=== PATIENT | female | born 1975 | race Caucasian/White ===

== ENCOUNTER 2025-01-03 11:34 | Emergency (ER) | payer OTHER, MEDICAID, SELFPAY ==
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
[2025-01-03 11:45] VITALS: BP 127/77; PULSE 74; RESP 18; TEMP 36.5; O2SAT 99
--- NOTE | 2025-01-03 12:34 | ECG_ITS ---
Test Date: 2025-01-03 13:05:43 Measurements Intervals [place] Rate: 61 P: 34 W[place]: 122 QRS: 85 QRSD: 76 T: 66 QT: 378 QTc: 383 Interpretive Statements SINUS RHYTHM BASELINE ARTIFACT- I, II, AVR NORMAL ECG No previous ECG available for comparison Electronically Signed On 01-03-2025 13:18:28 CDT by Jon Hyatt D.O.
[2025-01-03 13:01] LABS: Hematocrit 38.7 % (37.0-47.0); Hemoglobin 13.3 g/dL (12.0-15.0); Immature Granulocyte Percent A 0.4 % (0-0.5); Lymphocytes Absolute Auto 2.00 K/mm3 (0.9-3.2); Mean Corpuscular HGB Conc 34.4 g/dl (32-36); Mean Corpuscular Hemoglobin 33.5 pg (26-34); Mean Corpuscular Volume 97.5 fl (80-100); Nucleated Red Blood Cells Absolute Auto 0.000 K/mm3 (0.0-0.012); Nucleated Red Blood Cells Perc 0.0 % (0.0-0.2); Platelet Count Result 279 k/mm3 (150-375); Red Blood Count 3.97 M/mm3 (4.2-5.4); White Blood Count 13.6 K/mm3 (4.5-10.0)
[2025-01-03 13:21] LABS: Alanine Aminotransferase 15 U/L (6-35); Albumin Level 4.1 g/dL (3.5-5.1); Alkaline Phosphatase 52 U/L (38-126); Anion Gap 5 mmol/L (4-12); Aspartate Amino Transferase 22 U/L (14-36); Bilirubin,Total 0.3 mg/dL (0.2-1.3); Blood Urea Nitrogen 11 mg/dL (7-17); Calcium 9.2 mg/dL (8.4-10.2); Carbon Dioxide 21 mmol/L (22-30); Chloride 108 mmol/L (98-107); Estimated CRCL calculation 73 ml/min; Estimated Glomerular Filt Rate > 60; Glucose 85 mg/dL (65-110); Potassium 4.2 mmol/L (3.4-5.0); Sodium 134 mmol/L (137-145); Total Protein 6.8 g/dL (6.3-8.2)
[2025-01-03 13:27] LABS: Troponin I < 0.012 ng/mL (0.000-0.034)
--- NOTE | 2025-01-03 13:29 | PC.NURSE ---
patient taken to CT, no medication administered at this time as patient was previously in XR and upon return EKG was obtained.
--- OUTSIDE RECORDS SUMMARY | 2025-01-03 13:36 | XMS_ITS | Data Portability ---
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 D/w pt in detail about her conditions, recent labs & imagines and further plan of care. Will do routine labs, x-ray. Pt declined for cxr. Meds as directed. Diet and exercise explained in detail. BP diary education given and call us if any concerns. Encouraged pt to cut down and stop vaping. Cont f/u with Psych at [facility] as per schedule. HM: WWE - Long time ago. Refer to PLASTERER TENDER. Mammo - 05/20/22, normal. Colonoscopy - Pt declined. Cologuard ordered. Flu - Pt declined. Tdap, Pneumo, Shingrix - At pharmacy/HD. F/u in 2 weeks. Annual labs in 05/31. [email or web address] Not available 05/27/2022 15:40:18 06/03/2022 06/03/2022 46 yo F with - HLD, new - HTG, new - CHRONIC NECK & LOW BACK PAIN - MENOPAUSAL FLUSHING - BIPOLAR DISORDER - ANXIETY DISORDER - CHRONIC INSOMNIA - CHRONIC CONSTIPATION - VAPING - H/O OPIOID ABUSE Annual labs: 05/27/22. X-ray L-spine: 05/20/22. D/w pt in detail about her conditions, recent labs & imagines and further plan of care. Advised to start on statin; but pt declined. Meds as directed. Diet and exercise explained in detail. BP diary education given and call us if any concerns. Encouraged pt to cut down and stop vaping. Cont f/u with Psych at [facility] as per schedule. HM: WWE - Long time ago. Refer to PLASTERER TENDER. Mammo - 05/20/22, normal. Colonoscopy - Pt declined. Cologuard ordered. Flu - Pt declined. Tdap, Pneumo, Shingrix - At pharmacy/HD. F/u in 3 months. X-ray neck before next visit. Lipids in 08/30. Annual labs in 05/31. [email or web address] Not available 06/03/2022 17:27:55 01/28/2023 01/28/2023 D/w pt about her findings and further plan of care. Meds as directed. OTC symptomatic Rx explained in detail. Very good liquid intake explained. Educated about alarming symptoms to monitor at home and call us back Or get checked in ED if any concerns. F/u as directed. [email or web address] Not available 01/28/2023 12:55:20 05/27/2023 05/27/2023 47 yo F with - HLD, new - HTG, new - CHRONIC NECK & LOW BACK PAIN - MENOPAUSAL FLUSHING - BIPOLAR DISORDER - ANXIETY DISORDER - CHRONIC INSOMNIA - VAPING - H/O OPIOID ABUSE Annual labs: 05/27/22. X-ray L-spine: 05/20/22. CXR: 06/13/21. X-ray T & L spine: 06/13/21. D/w pt in detail about her conditions, recent labs & imagines and further plan of care. Will do x-ray c-spine again. Meds as directed. Diet and exercise explained in detail. BP diary education given and call us if any concerns. Encouraged pt to cut down and stop vaping. Cont f/u with Psych at [facility] as per schedule. HM: WWE - Long time ago. Refer to PLASTERER TENDER. Mammo - 05/20/22, normal. Ordered. Colonoscopy - Pt declined. Cologuard ordered. Flu - Pt declined. Tdap, Pneumo, Shingrix - At pharmacy/HD. F/u in 3-4 weeks. X-ray neck before next visit. Annual labs in 05/31. [email or web address] Not available 05/27/2023 15:37:45 Plan of Treatment Reminders Order Date Submit Date Provider Last Modified By Organization Details Last Modified Time Details Appointments None recorded. Lab lipid panel, serum 20[email or web address] [facility] (Lab), [address] [place], [address], 4 08:59:22 lipid panel, serum [address] (Lab), [address] [place], [address], 3 10:52:33 vitamin B12 + folate, serum or blood [address] (Lab), [address] [place], [address], 3 11:53:52 vitamin D, 25-hydroxy, total, serum [address] (Lab), [address] [place], [address], 3 11:54:02 magnesium, serum or plasma [email or web address] [facility] (Lab), [address] [place], [address], 3 19:31:01 noninvasive colorectal cancer DNA + occult blood screening, QL, stool 2022 023 [email or web address] [facility], [address], [address], [place], [address], 3 10:57:29 HbA1c (hemoglobin A1c), blood [email or web address] (Lab), [address] [place], [address], 3 11:54:13 CBC w/ auto diff [address] [facility] (Lab), [address] [place], [address], 3 19:15:33 CMP, serum or plasma [address] [facility] (Lab), [address] [place], [address], 3 19:30:52 lipid panel, serum [address] [facility] (Lab), [address] [place], [address], 3 19:30:57 TSH, serum, reflex free T4 [address] (Lab), [address] [place], [address], 3 11:53:19 urinalysis complete, reflex culture [address] (Lab), [address] [place], [address], 3 11:53:39 Referral None recorded. Procedures None recorded. Surgeries None recorded. Imaging MAMMO, screening, bilateral [email or web address] [address] [place] [address] ([facility]), [address] [place], [address], 4 08:52:18 XR, cervical spine, 4 or 5 view 2023 024 [email or web address] [address] [place] [address] ([facility] Scheduling), [address] [place], [address], 4 08:51:32 XR, cervical spine, 2 or 3 view 2022 023 [email or web address] [facility] ([facility] Scheduling), [address] [facility], [place], [address], 3 09:01:22 Medication Orders quetiapine 200 mg tablet 2023 024 [facility], [address] [place] [address], [address], 4 14:51:59 paroxetine 20 mg tablet 2023 024 [facility], [address] [place] [address], [address], 4 14:52:00 azithromyci n 250 mg tablet [address], [address] [place] [address], [address], 4 14:54:43 Veozah 45 mg tablet 2022 023 [facility] [address], [address] [place] [address], [address], 3 13:03:32 paroxetine 10 mg tablet [address], [address] [place] [address], [address], 4 14:54:38 quetiapine 200 mg tablet 2022 023 [facility] [address], [address] [place] [address], [address], 3 17:28:47 paroxetine 10 mg tablet [address], [address] [place] [address], [address], 14:54:38 paroxetine 10 mg tablet 2022 023 [email or web address] [facility], [address] [facility], [place], [address], 14:54:38 Patient TargetsNo targets recorded. Patient Instructions Encounter Date Encounter Id Patient Instructions Last Modified By Organization Details Last Modified Time 06/03/2022 [id number] high cholesterol : care instructions [email or web address] Not available 06/03/2022 17:15:53 05/27/2023 [id number] high cholesterol : care instructions [email or web address] Not available 05/27/2023 14:51:49 Reason for Referral None Reported. Results Created Date Observation Date Name Description Value Unit Range Abnormal Flag Note LastModifiedBy Organization Detail LastModifiedTime 05/27/19 24 05/27/2023 COLOG UARD cologuard result CANCEL LED - ORDER D not applic able Not Available [facility] [address], [place], [address], 05/27/2023 10:36:39 05/28/19 23 05/27/2022 CBC/C OMPLE TE BLD COUNT W/DIF F white blood cells 5.2 x10'3 /uL 4.2-10 .8 Not Available [facility] (Lab) [address] [place], [address], 05/27/2022 19:15:33 05/28/19 23 05/27/2022 CBC/C OMPLE TE BLD COUNT W/DIF F red blood cells 4.10 x10'6 /uL 3.80-5 .20 Not Available [facility] (Lab) [address] [place], [address], 05/27/2022 19:15:33 05/28/19 23 05/27/2022 CBC/C OMPLE TE BLD COUNT W/DIF F hemoglobin 13.0 g/dL 12.0-1 5.6 Not Available [facility] (Lab) [address] [place], [address], 05/27/2022 19:15:33 05/28/19 23 05/27/2022 CBC/C OMPLE TE BLD COUNT W/DIF F hematocrit 38.6 % 35.7-4 5.7 Not Available [facility] (Lab) [address] [place], [address], 05/27/2022 19:15:33 05/28/19 23 05/27/2022 CBC/C OMPLE TE BLD COUNT W/DIF F mean red cell volume 94.1 fL 82.0-9 9.0 Not Available [facility] (Lab) [address] [place], [address], 05/27/2022 19:15:33 05/28/19 23 05/27/2022 CBC/C OMPLE TE BLD COUNT W/DIF F mean red cell hemoglobin 31.7 pg 27.0-3 3.0 Not Available [facility] (Lab) [address] [place], [address], 05/27/2022 19:15:33 05/28/19 23 05/27/2022 CBC/C OMPLE TE BLD COUNT W/DIF F mean RBC HGB concentratio n 33.7 g/dL 31.0-3 6.0 Not Available [facility] (Lab) [address] [place], [address], 05/27/2022 19:15:33 05/28/19 23 05/27/2022 CBC/C OMPLE TE BLD COUNT W/DIF F red cell distribution width 11.5 % 11.8-1 5.5 low Not Available [facility] (Lab) [address] [place], [address], 05/27/2022 19:15:33 05/28/19 23 05/27/2022 CBC/C OMPLE TE BLD COUNT W/DIF F platelets 308 x10'3 /uL 150-40 0 Not Available [facility] (Lab) [address] [place], [address], 05/27/2022 19:15:33 05/28/19 23 05/27/2022 CBC/C OMPLE TE BLD COUNT W/DIF F mean platelet volume 8.9 fL 9.0-12 .4 low Not Available [facility] (Lab) [address] [place], [address], 05/27/2022 19:15:33 05/28/19 23 05/27/2022 CBC/C OMPLE TE BLD COUNT W/DIF F neutrophils 51.5 % 39.0-7 2.0 Not Available [facility] (Lab) [address] [place], [address], 05/27/2022 19:15:33 05/28/19 23 05/27/2022 CBC/C OMPLE TE BLD COUNT W/DIF F lymphocytes 30.8 % 16.0-4 7.0 Not Available [facility] (Lab) [address] [place], [address], 05/27/2022 19:15:33 05/28/19 23 05/27/2022 CBC/C OMPLE TE BLD COUNT W/DIF F monocytes 6.8 % 5.0-12 .0 Not Available [facility] (Lab) [address] [place], [address], 05/27/2022 19:15:33 05/28/19 23 05/27/2022 CBC/C OMPLE TE BLD COUNT W/DIF F eosinophils 10.1 % 1.0-7. 0 high Not Available [facility] (Lab) [address] [place], [address], 05/27/2022 19:15:33 05/28/19 23 05/27/2022 CBC/C OMPLE TE BLD COUNT W/DIF F basophils 0.6 % 0.0-2. 0 Not Available [facility] (Lab) [address] [place], [address], 05/27/2022 19:15:33 05/28/19 23 05/27/2022 CBC/C OMPLE TE BLD COUNT W/DIF F immature granulocytes 0.2 % 0.00-0 .50 Not Available [facility] (Lab) [address] [place], [address], 05/27/2022 19:15:33 05/28/19 23 05/27/2022 CBC/C OMPLE TE BLD COUNT W/DIF F neutrophils, absolute count 2.67 x10'3 /uL 1.5-8. 0 Not Available [facility] (Lab) [address] [place], [address], 05/27/2022 19:15:33 05/28/19 23 05/27/2022 CBC/C OMPLE TE BLD COUNT W/DIF F lymphocytes, absolute count 1.59 x10'3 /uL 1.07-3 .43 Not Available [facility] (Lab) [address] [place], [address], 05/27/2022 19:15:33 05/28/19 23 05/27/2022 CBC/C OMPLE TE BLD COUNT W/DIF F monocytes, absolute count 0.35 x10'3 /uL 0.29-0 .99 Not Available [facility] (Lab) [address] [place], [address], 05/27/2022 19:15:33 05/28/19 23 05/27/2022 CBC/C OMPLE TE BLD COUNT W/DIF F eosinophils, absolute count 0.52 x10'3 /uL 0.02-0 .53 Not Available [facility] (Lab) [address] [place], [address], 05/27/2022 19:15:33 05/28/19 23 05/27/2022 CBC/C OMPLE TE BLD COUNT W/DIF F basophils, absolute count 0.03 x10'3 /uL 0.01-0 .08 Not Available [facility] (Lab) [address] [place], [address], 05/27/2022 19:15:33 05/28/19 23 05/27/2022 CBC/C OMPLE TE BLD COUNT W/DIF F immature granulocytes ,absolute 0.01 x10'3 /uL 0.00-0 .05 Not Available [facility] (Lab) [address] [place], [address], 05/27/2022 19:15:33 05/28/19 23 05/27/2022 CBC/C OMPLE TE BLD COUNT W/DIF F nucleated red blood cells 0.0 % -0 Not Available [facility] (Lab) [address] [place], [address], 05/27/2022 19:15:33 05/28/19 23 05/27/2022 CBC/C OMPLE TE BLD COUNT W/DIF F NRBC# 0.00 x10'3 /uL Not Available [facility] (Lab) [address] [place], [address], 05/27/2022 19:15:33 05/28/19 23 05/27/2022 URINA LYSIS COMPL ETE/I RIS W/RFX color YELLOW Not Available [facility] (Lab) [address] [place], [address], 05/27/2022 19:18:15 05/28/19 23 05/27/2022 URINA LYSIS COMPL ETE/I RIS W/RFX appear TURBID abnormal Not Available [facility] (Lab) [address] [place], [address], 05/27/2022 19:18:15 05/28/19 23 05/27/2022 URINA LYSIS COMPL ETE/I RIS W/RFX specific gravity 1.027 1.001- 1.030 Not Available [facility] (Lab) [address] [place], [address], 05/27/2022 19:18:15 05/28/19 23 05/27/2022 URINA LYSIS COMPL ETE/I RIS W/RFX pH 6.5 pH_un its 5.0-9. 0 Not Available [facility] (Lab) [address] [place], [address], 05/27/2022 19:18:15 05/28/19 23 05/27/2022 URINA LYSIS COMPL ETE/I RIS W/RFX leukocytes NEGATI VE ratna/u L negati ve- Not Available [facility] (Lab) [address] [place], [address], 05/27/2022 19:18:15 05/28/19 23 05/27/2022 URINA LYSIS COMPL ETE/I RIS W/RFX nitrite NEGATI VE negati ve- Not Available [facility] (Lab) [address] [place], [address], 05/27/2022 19:18:15 05/28/19 23 05/27/2022 URINA LYSIS COMPL ETE/I RIS W/RFX protein 30 mg/dL negati ve- abnormal Not Available [facility] (Lab) [address] [place], [address], 05/27/2022 19:18:15 05/28/19 23 05/27/2022 URINA LYSIS COMPL ETE/I RIS W/RFX glucose NORMAL mg/dL normal - Not Available [facility] (Lab) [address] [place], [address], 05/27/2022 19:18:15 05/28/19 23 05/27/2022 URINA LYSIS COMPL ETE/I RIS W/RFX ketones NEGATI VE mg/dL negati ve- Not Available [facility] (Lab) [address] [place], [address], 05/27/2022 19:18:15 05/28/19 23 05/27/2022 URINA LYSIS COMPL ETE/I RIS W/RFX urobilinogen NORMAL mg/dL normal - Not Available [facility] (Lab) [address] [place], [address], 05/27/2022 19:18:15 05/28/19 23 05/27/2022 URINA LYSIS COMPL ETE/I RIS W/RFX bilirubin NEGATI VE mg/dL negati ve- Not Available [facility] (Lab) [address] [place], [address], 05/27/2022 19:18:15 05/28/19 23 05/27/2022 URINA LYSIS COMPL ETE/I RIS W/RFX blood NEGATI VE mg/dL negati ve- Not Available [facility] (Lab) [address] [place], [address], 05/27/2022 19:18:15 05/28/19 23 05/27/2022 URINA LYSIS COMPL ETE/I RIS W/RFX white blood cells 0-8 /i??h pfi?? 0-8 Not Available [facility] (Lab) [address] [place], [address], 05/27/2022 19:18:15 05/28/19 23 05/27/2022 URINA LYSIS COMPL ETE/I RIS W/RFX red blood cells NONE /i??h pfi?? 0-4 Not Available [facility] (Lab) [address] [place], [address], 05/27/2022 19:18:15 05/28/19 23 05/27/2022 URINA LYSIS COMPL ETE/I RIS W/RFX bacteria MANY abnormal Not Available [facility] (Lab) [address] [place], [address], 05/27/2022 19:18:15 05/28/19 23 05/27/2022 URINA LYSIS COMPL ETE/I RIS W/RFX mucous MODERA TE /i??l pfi?? abnormal Not Available [facility] (Lab) [address] [place], [address], 05/27/2022 19:18:15 05/28/19 23 05/27/2022 URINA LYSIS COMPL ETE/I RIS W/RFX squamous epithelial PACKED FIELD /i??l pfi?? abnormal Not Available [facility] (Lab) [address] [place], [address], 05/27/2022 19:18:15 05/28/19 23 05/27/2022 COMPR EHENS GUILLERMINA METAB OLIC PANEL sodium 139 mmol/ L 137-14 5 Not Available [facility] (Lab) [address] [place], [address], 05/27/2022 19:30:52 05/28/19 23 05/27/2022 COMPR EHENS GUILLERMINA METAB OLIC PANEL potassium 4.4 mmol/ L 3.5-5. 1 Not Available [facility] (Lab) [address] [place], [address], 05/27/2022 19:30:52 05/28/19 23 05/27/2022 COMPR EHENS GUILLERMINA METAB OLIC PANEL chloride 106 mmol/ L 98-107 Not Available [facility] (Lab) [address] [place], [address], 05/27/2022 19:30:52 05/28/19 23 05/27/2022 COMPR EHENS GUILLERMINA METAB OLIC PANEL carbon dioxide 28 mmol/ L 22-30 Not Available [facility] (Lab) [address] [place], [address], 05/27/2022 19:30:52 05/28/19 23 05/27/2022 COMPR EHENS GUILLERMINA METAB OLIC PANEL anion gap 9.4 mmol/ L 14-22 low Not Available [facility] (Lab) [address] [place], [address], 05/27/2022 19:30:52 05/28/19 23 05/27/2022 COMPR EHENS GUILLERMINA METAB OLIC PANEL glucose 87 mg/dL 70-99 Not Available [facility] (Lab) [address] [place], [address], 05/27/2022 19:30:52 05/28/19 23 05/27/2022 COMPR EHENS GUILLERMINA METAB OLIC PANEL BUN 14 mg/dL 8-19 Not Available [facility] (Lab) [address] [place], [address], 05/27/2022 19:30:52 05/28/19 23 05/27/2022 COMPR EHENS GUILLERMINA METAB OLIC PANEL creatinine 0.72 mg/dL 0.66-1 .25 Not Available [facility] (Lab) [address] [place], [address], 05/27/2022 19:30:52 05/28/19 23 05/27/2022 COMPR EHENS GUILLERMINA METAB OLIC PANEL GFR >60 Refer ence Range : [place] ge GFR Healt hy Adult : >60 mL/mi n/1.7 3 m2 Chron ic Kidne y Disea se: 15-60 mL/mi n/1.7 3 m2 Kidne y Failu re: <15/m L/min /1.73 m2 www.n iddk. nih.g ov The MDRD study equat ion has not been valid ated in child sabina <18 years of age; pregn ant women ; the elder ly >85 years of age; or in some racia l or ethni c subgr oups, such as Hispa nics. Outsi de the valid ated cholo eters , estim ated GFR is less accur ate, requi ring clini mikhail judgm ent on a case- by-ca se basis . Clini mikhail inter preta tion for other races and ages must be made by the clini tian. The MDRD study equat ion has not been valid ated for the evalu ation of serum creat inine relat ed to nutri medhat l statu s or medic ation usage . For perso ns <18 years of age, a pedia tric GFR calcu lator is avail able on the [facility] websi te: https :[email or web address] w.jasen gusmany.o rg/pr ofess ional s/kdo qi/gf r_cal culat or Not Available [facility] (Lab) [address] [place], [address], 05/27/2022 19:30:52 05/28/19 23 05/27/2022 COMPR EHENS GUILLERMINA METAB OLIC PANEL alkaline phosphatase 75 U/L 38-126 Not Available [facility] (Lab) [address] [place], [address], 05/27/2022 19:30:52 05/28/19 23 05/27/2022 COMPR EHENS GUILLERMINA METAB OLIC PANEL alanine aminotransfe rase 24 U/L 0-35 Not Available [facility] (Lab) [address] [place], [address], 05/27/2022 19:30:52 05/28/19 23 05/27/2022 COMPR EHENS GUILLERMINA METAB OLIC PANEL aspartate aminotransfe rase 32 U/L 15-37 Not Available [facility] (Lab) [address] [place], [address], 05/27/2022 19:30:52 05/28/19 23 05/27/2022 COMPR EHENS GUILLERMINA METAB OLIC PANEL bilirubin, total 0.40 mg/dL 0.20-1 .30 Not Available [facility] (Lab) [address] [place], [address], 05/27/2022 19:30:52 05/28/19 23 05/27/2022 COMPR EHENS GUILLERMINA METAB OLIC PANEL calcium 9.6 mg/dL 8.4-10 .2 Not Available [facility] (Lab) [address] [place], [address], 05/27/2022 19:30:52 05/28/19 23 05/27/2022 COMPR EHENS GUILLERMINA METAB OLIC PANEL total protein 7.7 g/dL 6.3-8. 2 Not Available [facility] (Lab) [address] [place], [address], 05/27/2022 19:30:52 05/28/19 23 05/27/2022 COMPR EHENS GUILLERMINA METAB OLIC PANEL albumin 4.4 g/dL 3.4-5. 0 Not Available [facility] (Lab) [address] [place], [address], 05/27/2022 19:30:52 05/28/19 23 05/27/2022 COMPR EHENS GUILLERMINA METAB OLIC PANEL globulin 3.3 g/dL 2.6-4. 2 Not Available [facility] (Lab) [address] [place], [address], 05/27/2022 19:30:52 05/28/19 23 05/27/2022 COMPR EHENS GUILLERMINA METAB OLIC PANEL A/G ratio 1.3 ratio 1.0-2. 0 Not Available [facility] (Lab) [address] [place], [address], 05/27/2022 19:30:52 05/28/19 23 05/27/2022 LIPID PANEL cholesterol 220 mg/dL 140-19 9 high NIH TIARA NSUS RECOM MENDA TION FOR JORY STERO L: ADULT CHILD LOW RISK: <200 <170 BORDE RLINE : <200- 239 ----- HIGH RISK: >240 >200 Not Available [facility] (Lab) [address] [place], [address], 05/27/2022 19:30:57 05/28/19 23 05/27/2022 LIPID PANEL triglyceride s 215 mg/dL 0-150 high NIH TIARA NSUS REPOR T RECOM MENDA TION FOR TRIGL YCERI RACHEL: ADULT CHILD LOW RISK: <150 ----- BODER LINE: 150-1 99 ----- HIGH RISK: >200 ----- Not Available [facility] (Lab) [address] [place], [address], 05/27/2022 19:30:57 05/28/19 23 05/27/2022 LIPID PANEL HDL cholesterol 52 mg/dL 40- Not Available [facility] (Lab) [address] [place], [address], 05/27/2022 19:30:57 05/28/19 23 05/27/2022 LIPID PANEL LDL cholesterol, calculated 125 mg/dL 0-130 NIH TIARA NSUS REPOR T RECOM MENDA TIONS FOR LDL: ADULT CHILD LOW RISK <130 <110 (OPTI MAL LDL) <100 ----- BORDE RLINE : 130-1 59 ----- HIGH RISK: >160 >130 A TRIGL YCERI DE RESUL T >400 INVAL IDATE S THE CALCU LATIO N FOR LDL FRACT IONAT ION - THE LDL RESUL T WILL NOT BE REPOR TAMEKA. Not Available [facility] (Lab) [address] [place], [address], 05/27/2022 19:30:57 05/28/1905/27/2022 MAGNE SIUM magnesium 1.8 mg/dL 1.6-2. 3 Not Available [facility] (Lab) [address] [place], [address], 05/27/2022 19:31:01 05/28/19 23 05/27/2022 VITAM IN D 25-HY DROXY vd25oh 54.9 NG/mL 30-100 Vitam in D Statu s: Defic ient: <20 ng/mL Insuf ficie nt: 20-29 ng/mL Suffi cient : 30-10 0 ng/mL Not Available [facility] (Lab) [address] [place], [address], 05/27/2022 19:48:02 05/28/19 23 05/27/2022 TSH W/REF AMBER FT4 TSH with reflex free T4 1.800 uIU/m L 0.465- 4.680 Not Available [facility] (Lab) [address] [place], [address], 05/27/2022 20:11:59 05/28/19 23 05/27/2022 VITAM IN B12 (GUADALUPE ALAINA ) vb12 558 pg/mL 239-93 1 Not Available [facility] (Lab) [address] [place], [address], 05/27/2022 20:51:23 05/28/19 23 05/27/2022 FOLAT E, SERUM /PLAS MA folate 15.4 NG/mL 2.76-2 0.0 Not Available [facility] (Lab) [address] [place], [address], 05/27/2022 20:51:28 05/28/19 23 05/27/2022 HEMOG LOBIN A1C HA1C 5.8 % 4.0-6. 0 Diabe ly Scree silverio Crite joe: <5.7% Consi stent with absen ce of diabe ly 5.7-6 .4% Consi stent with incre ased risk for diabe ly (pred iabet es) >OR=6 .5% Consi stent with diabe ly REFER ENCE: Diabe ly Care 2016, 39(Mcmahon ppl.1 ):s13 -s22 Not Available [facility] (Lab) [address] [place], [address], 05/27/2022 21:38:10 05/21/19 23 05/20/2022 XR, lumba r spine [facility] [address] [place] [address] [phone] Pat[place]ah t Name: GENESIS CAREY Access ion #: [id number] Sex: F : 1975 7 Locati on: RAD Attend ing Physic macrina: KATY SERRANO Orderi ng Physic macrina: KATY SERRANO Exam Date: 3:09 PM Exam Name: XR L SPINE 4V+ Admitt ing Diagno sis(es ): RADIOL OGY REPORT - FINAL EXAM: XR L SPINE 4V+ HISTOR Y: LOW BACK PAIN 46-yea r-old female with low back pain after injury years ago. COMPAR ADA: Radiog raphs dated 2021. TECHNI QUE: Five views of the lumbar spine were perfor med. FINDIN GS: No fractu re or listhe sis of the lumbar spine. There is mild lumbar degene rative disc diseas e and facet arthro anthony. The obliqu e films do not demons trate spondy lolysi s. IMPRES ASHLEY: Mild degene rative change s of the lumbar spine withou t eviden ce of fractu re. Page 1 of 2 [facility] Name[facility] GENESIS CAREY Access ion #: [id number] Sex: F : 1975 7 Exam Date: 3:09 PM Exam Name: XR L SPINE 4V+ Admitt ing Diagno sis(es ): Create d and electr onical ly signed by: David reese MD Signed Date: 3:56 PM (CT) Dictat ed by: David reese MD DD: 3:56 PM (CT) DT: 3:56 PM (CT) Page 2 of [email or web address] [facility] (Imaging) [address] [place] [address], [id number], 05/27/2022 15:21:36 05/22/19 23 05/20/2022 scree tasneem allan [facility] [address], [place] [address] [phone] Bronwyn lorenzana Name: GENESIS CAREY Access ion #: [id number] Sex: F : 1975 6 Locati on: RAD Attend ing Physic macrina: KATY SERRANO Orderi ng Physic macrina: KATY SERRANO Exam Date: 023 3:08 PM Exam Name: MG PEREZ BREAST ANAMIKA BILAT Admitt ing Diagno sis(es ): MAMMOG PATIENCE REPORT - FINAL EXAM: SCRDarrius BREAST ANAMIKA BILAT HISTOR Y: SCREEN ING MAMMOG LUKASZ 46-yea r-old female with no curren t breast compla ints. COMPAR ADA: None availa ble, baseli ne study. TECHNI QUE: Bilate ral CC and MLO views of the breast s were perfor med. Digita l Mammog patience images were obtain ed. CAD (compu ter assist ed detect ion) was utiliz ed. 3D Digita l breast tomosy nthesi s was perfor med and used in the interp retati on of images . FINDIN GS: The breast s are hetero geneou sly dense, which may obscur e small masses . No masses , asymme tries, suspic ious calcif icatio ns, or rachel ectura l Page 1 of 2 [facility] Bronwyn lorenzana Name: GENESIS CAREY Access ion #: [id number] Sex: F : 1975 7 Exam Date: 023 3:08 PM Exam Name: MG PEREZ BREAST ANAMIKA BILAT Admitt ing Diagno sis(es ): distor tion are seen. IMPRES ASHLEY: BIRADS 1: Assess ment comple te. Negati ve. Recomm end annual screen ing mammog patience. Accord ing to the [employer], yearly mammog vianney are recomm ended starti ng at age 40 and contin uing as long as the woman is in good health . Clinic al Breast Exam should be part of the period health exam-a bout every 3 years for women in their 20s and 30s and every year for women 40 and over. Breast self-e xam is an option for women in their 20s. Any breast change noted on the breast self-e xam she would be report ed prompt ly [facility]. A negati ve mammog patience report should not discou rage follow -up or biopsy of a clinic ally signif icant findin g and/or abnorm ality. Dense breast tissue may obscur e small neopla sms. This bronwyn lorenzana has been entere d into a mammog patience remind er system with a target date for her next mammog lukasz. Create d and electr onical ly signed by: David reese MD Signed Date: 12:46 PM (CT) Dictat ed by: David reese MD DD: 12:46 PM (CT) DT: 12:46 PM (CT) Page 2 of [address] (Imaging) [address] [place], [address], 05/27/2022 15:21:36 01/04/20 25 01/03/2025 XR, chest , 2 view No observ ation record ed. [id number], [address], 01/03/2025 14:11:27 Result Notes Documentation Provider Name and Address Organization Details Recorded Time Xr, Lumbar Spine : [facility] [address] [place] [address] Patient Name: GENESIS CAREY Sex: F : 1975 [id number] Attending Physician: KT SERRANO Ordering Physician: KT SERRANO Exam Date: 05/20/2022 3:09 PM Exam Name: XR L SPINE 4V+ Admitting Diagnosis(es): RADIOLOGY REPORT - FINAL EXAM: XR L SPINE 4V+ HISTORY: LOW BACK PAIN 46-year-old female with low back pain after injury years ago. COMPARISON: Radiographs dated 06/13/2021. TECHNIQUE: Five views of the lumbar spine were performed. FINDINGS: No fracture or listhesis of the lumbar spine. There is mild lumbar degenerative disc disease and facet arthropathy. The oblique films do not demonstrate spondylolysis. IMPRESSION: Mild degenerative changes of the lumbar spine without evidence of fracture. Page 1 of 2 [facility] Patient Name: GENESIS CAREY Sex: F : 1975 Exam Date: 05/20/2022 3:09 PM Exam Name: XR L SPINE 4V+ Admitting Diagnosis(es): Created and electronically signed by: David Valencia MD Signed Date: 05/20/2022 3:56 PM (CT) Dictated by: David Valencia MD (CT) (CT) Page 2 of 2 Kt Serrano MD [address] [place] [address], [address], [place] [facility] [email or web address] 05/27/2022 15:21:36 Problems Name Problem SNOMED Code Status Onset Date Resolution Date Notes Provider Name and Address Organization Details Recorded Time Substance abuse 81770852 Completed 201603/10/2021 5 years ago held to your will Not Available [facility] 3 01:01:01 Bipolar disorder 22898667 Active 2021 Not Available [facility] 3 01:01:01 Anxiety disorder 791575934 Active 2021 Not Available [facility] 3 01:01:01 Chronic low back pain 670601209 Active 2021 Not Available [facility] 3 01:01:01 Thoracic back pain 037556325 Active 2021 Not Available [facility] 3 01:01:01 History of opioid abuse 31588878930 9100 Active 2021 Not Available [facility] 3 01:01:01 Chronic insomnia 751482577 Active 2021 Not Available [facility] 3 01:01:01 Smoker 93376518 Active 2021 Not Available [facility] 3 01:01:01 Menopausa l flushing 064514804 Active 2022 Not Available [facility] 3 01:01:01 History of substance abuse 980412102 Active 2022 Not Available [facility] 3 01:01:01 Vaping Active 2022 Not Available [facility] 3 01:01:01 Chronic idiopathi c constipat ion 02560146 Active 2022 Not Available [facility] 3 01:01:02 Chronic neck pain 09274717617 07 Active 2022 Kt Serrano MD [address], [address], [place], [address] , [employer] 3 15:23:43 Hyperlipi demia 44107994 Active 2022 Kt Serrano MD [address], [address], [place], [address] , [email or web address] 3 17:13:41 Hypertrig lyceridem ia 025121598 Active 2022 Kt Serrano MD [address], [address], [place], [address] , [employer] [facility] [email or web address] 3 17:15:22 Sore throat 630105450 Active 2022 Kt Serrano MD [address], [address], [place], [address] , [email or web address] 3 12:55:24 Bronchiti s 85113278 Active 2022 Kt Serrano MD [address], [address], [place], [address] , [email or web address] 3 12:55:31 Problem Notes None recorded. Procedures Surgical History Date Name Laterality Status Provider Name and Address Organization Details Recorded Time 4 Smoking Cessation completed Kt Serrano MD [address], [address], [place], [address], [facility] 05/27/2023 15:35:27 3 Smoking Cessation completed Kt Serrano MD [address], [address], [place], [address], [facility] [email or web address] [facility] 05/27/2022 15:45:30 Imaging Results None recorded. Procedure Notes None recorded. Medical Equipment None Reported. Medications Name Sig Start Date Stop Date Status Note LastModified by Organization Details LastModified Time cyclobenzap rine 10 mg tablet Take 1 tablet every 12 hours by oral route as needed for 30 days. 04/03 completed Not Available Not Available Not Available oxcarbazepi ne 150 mg tablet 04/03 completed Not Available Not Available Not Available clonidine HCl 0.1 mg tablet Take 1 tablet every 12 hours by oral route as directed for 30 days. 05/26 completed Not Available Not Available Not Available paroxetine 10 mg tablet Take 1 tablet every day by oral route at bedtime for 30 days. 05/26 completed Not Available Not Available Not Available clonidine 0.1 mg/24 hr weekly transdermal patch 04/03 completed Not Available Not Available Not Available quetiapine 300 mg tablet TAKE 1 TABLET BY MOUTH ONCE DAILY AT BEDTIME FOR 30 DAYS 04/03 completed Not Available Not Available Not Available azithromyci n 250 mg tablet TAKE 2 TABLETS (500 MG) BY ORAL ROUTE ONCE DAILY FOR 1 DAY THEN 1 TABLET (250 MG) BY ORAL ROUTE ONCE DAILY FOR 4 DAYS 05/26 completed Not Available Not Available Not Available prazosin 1 mg capsule 04/03 completed Not Available Not Available Not Available quetiapine 200 mg tablet TAKE 1 TABLET BY MOUTH EVERY 12 HOURS DIRECTED 2024 active Not Available Not Available Not Avai lable hydroxyzine pamoate 50 mg capsule TAKE 1 CAPSULE BY MOUTH THREE TIMES DAILY NEEDED 04/03 completed Not Available Not Available Not Available oxcarbazepi ne 300 mg tablet 05/27 completed Not Available Not Available Not Available melatonin 3 mg tablet 04/03 completed Not Available Not Available Not Available sulfamethox azole 800 mg-trimetho prim 160 mg tablet 04/03 completed Not Available Not Available Not Available quetiapine 100 mg tablet TAKE 2 TABLETS BY MOUTH TWICE DAILY DIRECTED 06/03 completed New Rx sent. Not Available Not Available Not Available meloxicam 7.5 mg tablet Take 1 tablet every day by oral route as needed for 30 days. 04/03 completed Not Available Not Available Not Available methocarbam ol 750 mg tablet 04/03 completed Not Available Not Available Not Available cephalexin 500 mg capsule 04/03 completed Not Available Not Available Not Available paroxetine 20 mg tablet TAKE 1 TABLET BY MOUTH ONCE DAILY DIRECTED 2023 active Not Available Not Available Not Avai lable buspirone 30 mg tablet 04/03 completed Not Available Not Available Not Available Banophen 25 mg tablet 04/03 completed Not Available Not Available Not Available buspirone 10 mg tablet 04/03 completed Not Available Not Available Not Available docusate sodium 100 mg capsule Take 1 capsule twice a day by oral route as needed for 30 days. 05/26 completed Not Available Not Available Not Available buspirone 7.5 mg tablet 04/03 completed Not Available Not Available Not Available Banophen 25 mg capsule 04/03 completed Not Available Not Available Not Available mirtazapine 15 mg tablet 05/27 completed Not Available Not Available Not Available ibuprofen 600 mg tablet 04/03 completed Not Available Not Available Not Available polyethylen e glycol 3350 17 gram/dose oral powder Take 17 g every day by oral route as directed. 05/27 completed Not Available Not Available Not Available doxycycline hyclate 100 mg tablet 04/03 completed Not Available Not Available Not Available buspirone 15 mg tablet Take 1 tablet every 12 hours by oral route as needed for 30 days. active Not Available Not Available No t Available divalproex ER 250 mg tablet,exte nded release 24 hr 04/03 completed Not Available Not Available Not Available mirtazapine 7.5 mg tablet 04/03 completed Not Available Not Available Not Available Suboxone 8 mg-2 mg sublingual film 05/27 completed Not Available Not Available Not Available naloxone 4 mg/actuatio n nasal spray 04/03 completed Not Available Not Available Not Available Sublocade 300 mg/1.5 mL solution,ex tended release subcutaneou s syringe 05/27 completed Not Available Not Available Not Available Veozah 45 mg tablet Take 1 tablet every day by oral route as directed for 30 days. 2022 active Not Available Not Available Not Avai lable Vitals Date Recorded Body mass index (BMI) Body height Oxygen saturation Oxygen saturation in Arterial blood by Pulse oximetry Heart rate Respiratory rate Body temperature Body weight Systolic And Diastolic Provider Name and Address Organization Details Last Updated DateTime 3 25.5 kg/m2 160.02 cm 99 % 99 % 96 /min 16 /min 97.6 [degF] 33172.3 g 116/84 mm[Hg] Not Available [facility] 3 00:59:59 Date Recorded Body height Body mass index (BMI) Body weight Body temperature Heart rate Respiratory rate Oxygen saturation Oxygen saturation in Arterial blood by Pulse oximetry Systolic And Diastolic Provider Name and Address Organization Details Last Updated DateTime 4 160.02 cm 24.3 kg/m2 42890.5 g 98.2 [degF] 68 /min 16 /min 99 % 99 % 130/76 mm[Hg] Masood Thorpe [facility] 4 14:43:42 Date Recorded Body height Body mass index (BMI) Body weight Body temperature Respiratory rate Heart rate Oxygen saturation Oxygen saturation in Arterial blood by Pulse oximetry Systolic And Diastolic Provider Name and Address Organization Details Last Updated DateTime 3 160.02 cm 25.7 kg/m2 71542.8 9 g 98.2 [degF] 16 /min 88 /min 99 % 99 % 124/86 mm[Hg] Maggie Gama RN [facility] [employer] 3 15:20:14 Date Recorded Body height Body mass index (BMI) Body weight Body temperature Heart rate Oxygen saturation Oxygen saturation in Arterial blood by Pulse oximetry Systolic And Diastolic Provider Name and Address Organization Details Last Updated DateTime 3 160.02 cm 26.4 kg/m2 29761.2 6 g 98 [degF] 93 /min 97 % 97 % 118/76 mm[Hg] [facility] [employer] 3 17:11:17 Date Recorded Body height Body mass index (BMI) Body weight Body temperature Heart rate Respiratory rate Oxygen saturation Oxygen saturation in Arterial blood by Pulse oximetry Systolic And Diastolic Provider Name and Address Organization Details Last Updated DateTime 3 160.02 cm 25 kg/m2 30322.8 7 g 98.6 [degF] 70 /min 16 /min 98 % 98 % 124/78 mm[Hg] Masood Thorpe [place] [employer] [facility] [employer] 3 13:00:16 Social History Question Answer Notes LastModified by Organizat ion Details LastModified Time Tobacco Smoking Status Current Every Day Smoker Not Available [facility] 05/09/2022 00:58:40 Do You Have An Advance Directive? No MIGRATION.89208 32281 Information not available 05/09/2022 If You Are , What Was Your Level Of Alcohol Consumption Prior To ? None MIGRATION.05234 26493 Information not available 05/09/2022 Do You Wear A Helmet When Biking? No MIGRATION.82871 61346 Information not available 05/09/2022 What Is Your Level Of Caffeine Consumption? Heavy MIGRATION.34378 01142 Information not available 05/09/2022 In The 14 Days Before Symptom Onset, Have You Had Close Contact With A Laboratory-confi rmed COVID-19 While That Case Was Ill? No MIGRATION.01030 97732 Information not available 05/09/2022 In The 14 Days Before Symptom Onset, Have You Had Close Contact With A Person Who Is Under Investigation For COVID-19 While That Person Was Ill? No MIGRATION.59125 64655 Information not available 05/09/2022 What Type Of Diet Are You Following? REGULAR MIGRATION.57658 09805 Information not available 05/09/2022 Have There Been Any Changes To Your Family Or Social Situation? Yes MIGRATION.41186 08649 Information not available 05/09/2022 What Is The Fluoride Status Of Your Home? Unknown MIGRATION.77676 56615 Information not available 05/09/2022 Are There Any Guns Present In Your Home? No MIGRATION.49082 50226 Information not available 05/09/2022 Do You Use Insect Repellent Routinely? No MIGRATION.35915 28111 Information not available 05/09/2022 Where Do You Live? [place] MIGRATION.15025 83212 Information not available 05/09/2022 Do You Have A Medical Power Of Ship Rigger Apprentice? No MIGRATION.38306 77454 Information not available 05/09/2022 Have You Ever Been Counseled For Unhealthy Alcohol Use? No MIGRATION.03255 93402 Information not available 05/09/2022 Do You Have Any Pets? Yes MIGRATION.31725 27909 Information not available 05/09/2022 What Is Your Relationship Status? Single MIGRATION.70542 35571 Information not available 05/09/2022 Do You Use Your Seat Belt Or Car Seat Routinely? Yes MIGRATION.26770 68370 Information not available 05/09/2022 Do You Have Smoke And Carbon Monoxide Detectors In Your Home? Yes MIGRATION.51972 51653 Information not available 05/09/2022 At What Age Did You Start Smoking Tobacco? 20 MIGRATION.43059 84052 Information not available 05/09/2022 Are You Passively Exposed To Smoke? No MIGRATION.87635 94441 Information not available 05/09/2022 Are There Any Smokers In Your House? No MIGRATION.76370 57341 Information not available 05/09/2022 How Much Tobacco Do You Smoke? 2 PPW MIGRATION.67889 95526 Information not available 05/09/2022 Do You Participate In Social Media? No MIGRATION.22850 09448 Information not available 05/09/2022 Do You Use Sunscreen Routinely? No MIGRATION.52490 90422 Information not available 05/09/2022 Has Tobacco Cessation Counseling Been Provided? No MIGRATION.21010 78153 Information not available 05/09/2022 How Many Years Have You Smoked Tobacco? 20 MIGRATION.20559 01251 Information not available 05/09/2022 Have You Recently Traveled Abroad? No MIGRATION.09142 25481 Information not available 05/09/2022 Are You Currently In School? No MIGRATION.89735 98859 Information not available 05/09/2022 Do You Have Any Dietary Restrictions? No MIGRATION.13510 00337 Information not available 05/09/2022 Sex: Female Functional Status Question Answer Note LastModified by Organizat ion Details LastModified Time Do you use any illicit or recreational drugs? No MIGRATION.[id number] 026 Information not available 05/09/2022 Do you or have you ever used any other forms of tobacco or nicotine? No MIGRATION.9607384 026 Information not available 05/09/2022 What is your level of alcohol consumption? None MIGRATION.6598859 026 Information not available 05/09/2022 What is your exercise level? Occasional MIGRATION.8907589 026 Information not available 05/09/2022 Mental Status Question Answer Note LastModified by Organizat ion Details LastModified Time Do you feel stressed (tense, restless, nervous, or anxious, or unable to sleep at night)? [id number] MIGRATION.[id number] 6 Information not available 05/09/2022 Family History Relationship Description Onset Age of this Age Resolved Age Notes LastModified by Organization Details LastModified Time Mother Family history of stroke MIGRATION.[id number] Not available 05/09/2022 00:59:28 Mother Anxiety disorder MIGRATION.505 [id number] Not available 05/09/2022 00:59:28 Mother Bipolar disorder MIGRATION.925 [id number] Not available 05/09/2022 00:59:28 Medical History No medical history recorded. Gynecological History Statement/Question Response Flow Moderate Date of LMP STIs/STDs N Dislike of Light during Menstrual Headac he N Current Control Method N/A Breast Problems none Sexually Active? N Weight gain Y Menses Monthly Y Desired Control Method None Discharge none Obstetrics History GPAL:G 0 P 0 0 0 0 Type Value Living 0 Total 0 Past Encounters Encounter ID Performer Location Encounter Start Date Encounter Closed Date Diagnosis/Indication Diagnosis SNOMED-CT Code Diagnosis ICD10 Code Diagnosis IMO Codes Diagnosis Note [id number] Kt Serrano MD [facility] [address] [place] [address] 06/05/2021 00:00:00 06/05/2021 15:37:28 [id number] Kt Serrano MD [facility] [address] [place] [address] 06/26/2021 00:00:00 06/26/2021 18:11:31 [id number] Kt [facility] [address] [address] 04/03/2022 00:00:00 04/03/2022 14:49:22 [id number] Dora Nguyễn NP [facility] [address] [address] 06/21/2021 00:00:00 07/02/2021 19:30:43 [id number] Dora Nguyễn NP [facility] [address] [address] 08/13/2021 00:00:00 08/14/2021 14:10:57 [id number] Dora Nguyễn NP [facility] [address] [address] 09/13/2021 00:00:00 09/17/2021 10:43:11 [id number] Dora Nguyễn NP [facility] [address] [address] 03/14/2022 00:00:00 03/19/2022 16:36:41 [id number] Dora Nguyễn NP [facility] [address] [address] 04/11/2022 00:00:00 04/15/2022 14:27:13 [id number] Kt Serrano MD [address] [address] 05/27/2022 15:12:02 05/27/2022 15:50:37 Chronic low back pain 211939779 M54.50 Chronic neck pain 458069 5306 107 M54.2 Adult [facility] th examination 777686223 Z00.00 Diabetes m ellitus screening 564470629 Z13.1 Screening for malignant neoplasm of colon 070034720 Z12.11 Menopausal flushing 1984 82266 N95.1 Vaping 635240504 Z77.29 [id number] Kt Serrano MD [address] [address] 06/03/2022 17:05:04 06/03/2022 17:20:05 Chronic neck pain 5132588951 107 M54.2 Menopausal flushing 1983 45888 N95.1 Hyperlipidemia 29894633 E78.5 Hypertriglyceridemia 302 073336 E78.2 Bipolar disorder 8422927 4 F31.9 [id number] Kt Serrano MD [address] [address] 01/28/2023 12:53:53 01/28/2023 14:08:05 Sore throat 100670873 J02.9 Bronchitis 46129946 J40 Menopausal flushing 1983 36742 N95.1 Hyperlipidemia 04638543 E78.5 [id number] Kt Serrano MD [address] [address] 05/27/2023 14:38:25 05/27/2023 15:07:23 Hyperlipidemia 66136375 E78.5 Hypertriglyceridemia 302 119014 E78.2 Chronic neck pain 385510 6324 107 M54.2 Menopausal flushing 1983 88363 N95.1 Bipolar disorder 0483942 4 F31.9 Screening mammography 24 943561 Z12.31 Chronic insomnia 0466694 04 F51.04 Vaping 920698702 Z77.29 Health Concerns Section Related Observation LastModified by Organization Detai ls LastModified Time None Recorded Concern Status LastModified by Organization Details LastModified Time None Recorded Advance Directives Directive N: Payers Insurance Date Sequence Insurance Name Policy Number Policy Patten Covered Member ID Patten Member ID Guarantor Name 05/21/2023 1 [facility] PRIOR TO 10/08/2024 (MEDICAID REPLACEMENT - HMO) [id number] Genesis Carey [id number] Genesis Carey 11/03/2024 1 [facility] [id number] Genesis Carey [id number] Genesis Carey Notes Date Note Type Note Provider Name and Address Organization Details Recorded Time 05/27/2022 text/html Pt is here for her annual exam and f/u on x-ray. Denies any problem with meds. C/o neck pain for last few yrs and she has not done any testing for it in the past. C/o lower back pain for last few yrs, but for last several months, its bothering her more. Pt denies any trauma in the past, has not seen any specialist for it.Needs refill on her meds. Pt was admitted to [place]hab in [place] for 3 months for Opioid abuse and she got d/c last month and she came back here.Denies any mood swings/SI/HI.Vapi ng ++. Kt Serrano MD [address] [facility], [facility] [address], [place], [address], [employer] 05/27/2022 15:46:15 06/03/2022 text/html Pt is here for f/u on her annual labs and x-ray. Doing overall better than before. Denies any problem with meds. Pt has not gone for x-ray yet. C/o neck pain for last few yrs and she has not done any testing for it in the past. C/o lower back pain for last few yrs, but for last several months, its bothering her more. Pt denies any trauma in the past, has not seen any specialist for it.Needs refill on her meds. Pt was admitted to In-pt rehab in [place] for 3 months for Opioid abuse and she got d/c last month and she came back here.Denies any mood swings/SI/HI.Vapi ng ++. Kt Serrano MD [address] [facility], [facility] [address], [place], [address], [employer] 06/03/2022 17:29:04 01/28/2023 text/html ACV: C/o sore throat, cough with greenish sputum, congestion for last 1 week. Pt has been doing otc meds, but still not getting any better. Her hot flashes are not controlled. Pt stopped Paxil for last several months and she needs refill on it. Kt Serrano MD [address] [facility], [facility] [address], [place], [address], [employer] 01/28/2023 14:02:21 05/27/2023 text/html Pt is here for her med refills. Denies any problem with meds. Denies any mood swings/SI/HI. Last visit in 05/30. Pt moved to [place] and now came back here. Pt has not gone for x-ray yet. C/o neck pain for last few yrs and she has not done any testing for it in the past. Pt was admitted to [place]hab in [place] for 3 months for Opioid abuse and she got d/c and she came back here.Vaping ++. Kt Serrano MD [address] [place] [address], [facility] [address], [place], [address], [facility] [email or web address] [facility] 05/27/2023 15:37:58 OBGyn Episode No OBEpisode recorded.
[2025-01-03] MEDS: MORPHINE SULFATE (*CRX) 4 MG/ML INJ IV PUSH (13:46)
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
[2025-01-03 15:38] VITALS: PULSE 68; RESP 14; O2SAT 100
== END 2025-01-03 15:41 | disposition home or self-care (01) ==
PROVIDERS: Emergency Provider Emergency Medicine; PCP Family Medicine
DX: S40.012A Contusion of left shoulder, initial encounter (principal); S16.1XXA Strain of muscle, fascia and tendon at neck level, initial encounter; M47.812 Spondylosis without myelopathy or radiculopathy, cervical region; V44.5XXA Car driver injured in collision with heavy transport vehicle or bus in traffic accident, initial encounter
CPT/HCPCS: 36415; 70450; 71046; 72125; 73000; 74177; 80053; 84484; 85025; 93005; 96374; 99284; J2270; Q9967